=== PATIENT | female | born 1990 | race Caucasian/White ===

== ENCOUNTER 2022-05-04 03:46 | Emergency (ER) | payer MEDICAID, OTHER ==
--- NOTE | 2022-05-04 04:13 | ED GI ---
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 Having intermittent abdominal pain for the past 1 year, which is associated with alternating constipation and diarrhea, with nausea and vomiting. Patient states that any flavorful food, greasy food, spicy food, alcohol will trigger the symptoms. Patient has been eating very bland food for the past year. Patient has recently moved here from [place], and has not seen a PCP in [place] or here for her abdominal issues. Patient states she did not see a PCP because they kept canceling appointments with her while she was in [place], and she has not established PCP care here yet in [place]. Denies fever and chills, chest pain, palpitations, headache or dizziness. Allergies and Home Medications Allergies Coded Allergies: Penicillins (Verified Allergy, Unknown, 05/04/22) amoxicillin (Verified Allergy, Unknown, 05/04/22) Patient Home Medication List Home Medication List Reviewed: Yes Review of Systems Review of Systems Constitutional: no symptoms reported EENTM: No Symptoms Reported Respiratory: No Symptoms Reported Cardiovascular: No Symptoms Reported Gastrointestinal: Abdominal Pain, Nausea, Vomiting Genitourinary: No Symptoms Reported Musculoskeletal: no symptoms reported Skin: no symptoms reported Psychiatric/Neurological: No Symptoms Reported Endocrine: No Symptoms Reported Hematologic/Lymphatic: No Symptoms Reported Past Eikpyta-Rlbtsp-Nuhxuz Hx Patient Social History Use of E-Cig and/or Vaping dev: Yes E-Cig or Vaping type used: Nicotine Substance use?: No Alcohol Use?: No Pt feels they are or have been: No Physical Exam Vital Signs Vital Signs - First Documented 05/04/22 03:52 Temp 36.3 Pulse 82 Resp 18 B/P (MAP) 106/65 (79) Pulse Ox 98 O2 Delivery Room Air Capillary Refill : Less Than 3 Seconds Height/Weight/BMI Height: '" Weight: lbs. oz. kg; BMI Method: General Appearance: WD/WN, mild distress HEENT: PERRL/EOMI Neck: full range of motion Respiratory: chest non-tender, lungs clear, normal breath sounds Cardiovascular: regular rate, rhythm Gastrointestinal: normal bowel sounds, soft, no organomegaly, tenderness (generalized tenderness, epigastric tenderness) Extremities: normal range of motion Back: no CVA tenderness Neurologic/Psychiatric: alert, oriented x 3 Skin: normal color Progress/Results/Core Measures Results/Orders Lab Results Laboratory Tests Test 05/04/22 03:58 Range/Units White Blood Count 9.2 4.3-11.0 10^3/uL Red Blood Count 4.77 3.80-5.11 10^6/uL Hemoglobin 13.7 11.5-16.0 g/dL Hematocrit 41 35-52 % Mean Corpuscular Volume 86 80-99 fL Mean Corpuscular Hemoglobin 29 25-34 pg Mean Corpuscular Hemoglobin Concent 34 32-36 g/dL Red Cell Distribution Width 12.5 10.0-14.5 % Platelet Count 235 130-400 10^3/uL Mean Platelet Volume 10.2 9.0-12.2 fL Neutrophils (%) (Auto) 73 42-75 % Lymphocytes (%) (Auto) 20 12-44 % Monocytes (%) (Auto) 7 0-12 % Eosinophils (%) (Auto) 0 0-10 % Basophils (%) (Auto) 0 0-10 % Neutrophils # (Auto) 6.7 1.8-7.8 X 10^3 Lymphocytes # (Auto) 1.9 1.0-4.0 X 10^3 Monocytes # (Auto) 0.6 0.0-1.0 X 10^3 Eosinophils # (Auto) 0.0 0.0-0.3 10^3/uL Basophils # (Auto) 0.0 0.0-0.1 10^3/uL Sodium Level 140 135-145 MMOL/L Potassium Level 3.5 L 3.6-5.0 MMOL/L Chloride Level 106 98-107 MMOL/L Carbon Dioxide Level 23 21-32 MMOL/L Anion Gap 11 5-14 MMOL/L Blood Urea Nitrogen 8 7-18 MG/DL Creatinine 0.71 0.60-1.30 MG/DL Estimat Glomerular Filtration Rate 115 BUN/Creatinine Ratio 11 Glucose Level 105 70-105 MG/DL Calcium Level 9.1 8.5-10.1 MG/DL Corrected Calcium 8.8 8.5-10.1 MG/DL Magnesium Level 2.1 1.6-2.4 MG/DL Total Bilirubin 0.4 0.1-1.0 MG/DL Aspartate Amino Transf (AST/SGOT) 12 5-34 U/L Alanine Aminotransferase (ALT/SGPT) 9 0-55 U/L Alkaline Phosphatase 78 40-136 U/L Total Protein 7.1 6.4-8.2 GM/DL Albumin 4.4 3.2-4.5 GM/DL Lipase 22 8-78 U/L My Orders Orders - ENRIQUETA SHAVER MD Drug Screen Stat (Urine) (05/04/22 04:13) Ua Culture If Indicated (05/04/22 04:13) Hcg,Qualitative Urine (05/04/22 04:14) Cbc With Automated Diff (05/04/22 04:14) Comprehensive Metabolic Panel (05/04/22 04:14) Lactic Acid Analyzer (05/04/22 04:14) Lipase (05/04/22 04:14) Magnesium (05/04/22 04:14) Ct Abdomen/Pelvis W (05/04/22 04:26) Ondansetron Injection (Zofran Injectio (05/04/22 04:30) Famotidine Injection (Pepcid Injection) (05/04/22 04:27) Ed Iv/Invasive Line Start (05/04/22 04:28) Iohexol Injection (Omnipaque 350 Mg/Ml 1 (05/04/22 04:45) Di Iv Start (Assessment) .IV start (05/04/22 04:34) Received Contrast (Hold Metformin- Contr (05/04/22 04:45) Ns (Ivpb) (Sodium Chloride 0.9% Ivpb Bag (05/04/22 04:45) Ed Iv/Invasive Line Start (05/04/22 05:37) Ns Iv 1000 Ml (Sodium Chloride 0.9%) (05/04/22 05:45) Medications Given in ED Current Medications Medications Dose Ordered Sig/Onel Route Start Time Stop Time Status Last Admin Dose Admin Iohexol 75 ml ONCE ONCE IV 05/04/22 04:45 05/04/22 04:46 DC 05/04/22 04:43 75 ML Ondansetron HCl 4 mg ONCE ONCE IVP 05/04/22 04:30 05/04/22 04:31 DC 05/04/22 04:32 4 MG Sodium Chloride 100 ml ONCE ONCE IV 05/04/22 04:45 05/04/22 04:46 DC 05/04/22 04:43 100 ML Vital Signs/I&O 05/04/22 03:52 Temp 36.3 Pulse 82 Resp 18 B/P (MAP) 106/65 (79) Pulse Ox 98 O2 Delivery Room Air Blood Pressure Mean: 79 Progress Progress Note : Progress Note 1. ABDOMINAL PAIN: IRRITABLE BOWEL SYNDROME - CT ABD: No acute findings - CBC/ CMP: normal - UA/UDS: Patient did not give a urine specimen - UCG: " - Pepcid 20mg iv/Zofran 4mg iv - NS IVF bolus STAT -Prescription given for Zofran ODT to be taken as needed for nausea and vomiting, advised [id number] Pepcid daily -Advised to follow-up with PCP within the next 7 days and also make a GI appointment -Adequate fluid intake advised -The patient was seen in the ED, and treated appropriately to presentation at a specific point in time. Patient is informed that there is a possibility that disease and illness can evolve and change in acuity rapidly or slowly after patient is discharged from the ER. Precautionary advice given to the patient for immediate return to ER if symptoms worsen or do not resolve, and to seek emerg ency care sooner rather than later. Pt also advised on the importance of PCP follow up and compliance with management and follow up plan with PCP and/or specialist, as this is part of the management plan. Pt verbally expressed understanding. Diagnostic Imaging Diagonstic Imaging: CT Plain Films/CT/US/NM/MRI: abdomen Comments [facility], [place] NAME: HELENE THOMASON [facility] REC#: [id number] PT STATUS: REG ER : 1990 PHYSICIAN: ENRIQUETA SHAVER MD ADMIT DATE: 05/04/22/ER FS Signed Date of Exam:05/04/22 CT ABDOMEN/PELVIS W CT ABDOMEN/PELVIS W TECHNIQUE: Multiple contiguous axial images were obtained through the abdomen and pelvis after administration of intravenous contrast. All CT scans use one or more of the following dose optimizing techniques: automated exposure control, MA and/or KvP adjustment based on patient size and exam type or iterative reconstruction. INDICATION: Generalized abdominal pain COMPARISON: None available. FINDINGS: Lower chest: The lung bases are clear. No pericardial or pleural effusion. Peritoneum: Trace free simple fluid in the pelvis is considered physiologic in a female of this age. Liver and biliary system: The liver is normal. The gallbladder is normal. No biliary duct dilation. Spleen and Pancreas: Spleen is normal. The pancreas enhances normally without mass lesion or peripancreatic inflammatory changes. Adrenals: Normal. tract: The kidneys enhance normally without suspicious mass or obstruction. Urinary bladder is distended without wall thickening. Hysterectomy. Both ovaries are normal in appearance. GI tract: Stomach is decompressed. No bowel obstruction. No pericolonic inflammatory changes. Normal appendix. Vasculature and Lymph nodes: Normal caliber aorta. No abdominal or pelvic lymphadenopathy. Musculoskeletal: No concerning osseous lesion. IMPRESSION: 1. No acute obstructive or inflammatory process. 2. No urinary tract stones. Dictated by: Dictated on workstation # [id number] Dict: 05/04/22 0551 Trans: 05/04/22 0554 [facility] [id number] Interpreted by: ELIZABETH WESTFALL MD Electronically signed by: ELIZABETH WESTFALL MD 05/04/22 0554 Departure Impression Primary Impression: Irritable bowel syndrome Qualified Codes: K58.9 - Irritable bowel syndrome without diarrhea Disposition: 01 HOME, SELF-CARE Condition: Stable Departure-Patient Inst. Referrals: NO,LOCAL PHYSICIAN (PCP/Family) Primary Care Physician Patient Instructions: Irritable Bowel Syndrome, Probiotics, IBS Diet, Irritable Bowel Syndrome (DC) Add. Discharge Instructions: -Prescription given for Zofran ODT to be taken as needed for nausea and vomiting, advised [id number] Pepcid daily -Advised to follow-up with PCP within the next 7 days and also make a GI appointment -Adequate fluid intake advised All discharge instructions reviewed with patient and/or family. Voiced understanding. Scripts Ondansetron (Ondansetron Odt) 4 Mg Tab.rapdis 4 MG SL Q4H PRN for NAUSEA/VOMITING for 5 Days, #25 TAB Prov: ENRIQUETA SHAVER MD 05/04/22 ENRIQUETA SHAVER MD May 04, 2022 04:13
[2022-05-04] MEDS ORDERED: FAMOTIDINE 20MG/2ML IV (PEPCID) IV STA (04:27)
[2022-05-04] MEDS ORDERED: ONDANSETRON 4 MG/2 ML (SDV) Z0FRAN IVP ONE (04:30)
[2022-05-04 04:42] LABS: BASOPHILS % (AUTO) 0 % (0-10); EOSINOPHILS % (AUTO) 0 % (0-10); HEMATOCRIT 41 % (35-52); HEMOGLOBIN 13.7 g/dL (11.5-16.0); LYMPHOCYTES % (AUTO) 20 % (12-44); MEAN CORPUSCULAR HEMOGLOBIN 29 pg (25-34); MEAN CORPUSCULAR HGB CONC 34 g/dL (32-36); MEAN CORPUSCULAR VOLUME 86 fL (80-99); MEAN PLATELET VOLUME 10.2 fL (9.0-12.2); MONOCYTES % (AUTO) 7 % (0-12); NEUTROPHILS % (AUTO) 73 % (42-75); PLATELET COUNT 235 10^3/uL (130-400); WHITE BLOOD COUNT 9.2 10^3/uL (4.3-11.0)
[2022-05-04 04:43] LABS: LYMPHOCYTES # (AUTO) 1.9 X 10^3 (1.0-4.0); MONOCYTES # (AUTO) 0.6 X 10^3 (0.0-1.0); NEUTROPHILS # (AUTO) 6.7 X 10^3 (1.8-7.8)
[2022-05-04] MEDS ORDERED: NS 100 ML (IVPB) BAG IV ONE (04:45)
[2022-05-04] MEDS ORDERED: HOLD METFORMIN - RECEIVED CONTRAST 20 ML VIAL IV SCH (04:45)
[2022-05-04] MEDS ORDERED: IOHEXOL 350 MG/ML 100 ML (OMNIPAQUE 350) VIAL IV ONE (04:45)
[2022-05-04 04:57] LABS: ALBUMIN 4.4 GM/DL (3.2-4.5); BILIRUBIN,TOTAL 0.4 MG/DL (0.1-1.0); CALCIUM 9.1 MG/DL (8.5-10.1); CREATININE SERUM 0.71 MG/DL (0.60-1.30); MAGNESIUM 2.1 MG/DL (1.6-2.4); POTASSIUM 3.5 MMOL/L (3.6-5.0); TOTAL PROTEIN 7.1 GM/DL (6.4-8.2)
[2022-05-04] MEDS ORDERED: NS IV 1000 ML 1,000 ML IV SCH (05:45)
--- NOTE | 2022-05-04 05:55 | Diagnostic Imaging Report ---
CT ABDOMEN/PELVIS W TECHNIQUE: Multiple contiguous axial images were obtained through the abdomen and pelvis after administration of intravenous contrast. All CT scans use one or more of the following dose optimizing techniques: automated exposure control, MA and/or KvP adjustment based on patient size and exam type or iterative reconstruction. INDICATION: Generalized abdominal pain COMPARISON: None available. FINDINGS: Lower chest: The lung bases are clear. No pericardial or pleural effusion. Peritoneum: Trace free simple fluid in the pelvis is considered physiologic in a female of this age. Liver and biliary system: The liver is normal. The gallbladder is normal. No biliary duct dilation. Spleen and Pancreas: Spleen is normal. The pancreas enhances normally without mass lesion or peripancreatic inflammatory changes. Adrenals: Normal. tract: The kidneys enhance normally without suspicious mass or obstruction. Urinary bladder is distended without wall thickening. Hysterectomy. Both ovaries are normal in appearance. GI tract: Stomach is decompressed. No bowel obstruction. No pericolonic inflammatory changes. Normal appendix. Vasculature and Lymph nodes: Normal caliber aorta. No abdominal or pelvic lymphadenopathy. Musculoskeletal: No concerning osseous lesion. IMPRESSION: 1. No acute obstructive or inflammatory process. 2. No urinary tract stones. Dictated by: Dictated on workstation # [id number]
[2022-05-04] MEDS ORDERED: ONDA4TAB11 SL (06:15)
[2022-05-04 06:22] VITALS: BP 106/65
[2022-05-05] MEDS ORDERED: CLIN-144 PO (22:04)
== END 2022-05-04 06:28 | disposition home or self-care (01) ==
LOC: ER FS 03:51
DX: K58.9 Irritable bowel syndrome, unspecified (principal); F17.290 Nicotine dependence, other tobacco product, uncomplicated; Z28.310 Unvaccinated for COVID-19
CPT/HCPCS: 36415; 74177; 80053; 83690; 83735; 85025; Q9967

== ENCOUNTER 2022-05-05 21:47 | Emergency (ER) | payer MEDICAID ==
[~2022-05-05] VITALS: Ht 172.7 cm; Wt 85.2 kg
[~2022-05-05 21:47] MED LIST: ONDA4TAB11 SL
[2022-05-05 21:50] VITALS: BP 117/68
[2022-05-05] MEDS ORDERED: LIDOCAINE/EPI 2% 1:100,00 (XYLOCAINE) 20 ML VIAL INJ ONE (22:00)
[2022-05-05] MEDS ORDERED: CLINDAMYCIN 150 MG (CLEOCIN) CAP PO ONE (22:00)
[2022-05-05] MEDS ORDERED: IBUPROFEN 600 MG (MOTRIN) TAB PO ONE (22:00)
--- NOTE | 2022-05-05 22:01 | ED Integumentary General ---
General Chief Complaint: Skin/Wound Problems Stated Complaint: PAIN W LYMPH NODE IN ARMPIT,NAUSEA,ABD PAIN,CHILLS Source: patient, old records Exam Limitations: no limitations History of Present Illness Date Seen by Provider: May 05, 2022 Time Seen by Provider: 21:53 Initial Comments 32-year-old female with no pertinent past medical history coming in due to swollen "cyst" in her right armpit and starting to feel like she was having sweats and body aches tonight. Been getting worse since Thursday, she was seen in the ER couple days ago, mostly for abdominal pain, but related issues in her axilla today. Otherwise denying any other acute complaints. Does not have a uterus. Has not had an updated tetanus vaccine in more than 10 years she believes. Allergies and Home Medications Allergies Coded Allergies: Penicillins (Verified Allergy, Unknown, 05/04/22) amoxicillin (Verified Allergy, Unknown, 05/04/22) Patient Home Medication List Home Medication List Reviewed: Yes Clindamycin HCl (Clindamycin HCl) 300 Mg Capsule, 300 MG PO QID Prescribed by: ROBERT GOSS on 05/05/224 Ondansetron (Ondansetron Odt) 4 Mg Tab.rapdis, 4 MG SL Q4H PRN for NAUSEA/VOMITING Prescribed by: ENRIQUETA SHAVER MD on 05/04/22 0615 Review of Systems Review of Systems Constitutional: chills EENTM: no symptoms reported Respiratory: no symptoms reported Cardiovascular: no symptoms reported Gastrointestinal: no symptoms reported Genitourinary: no symptoms reported Musculoskeletal: no symptoms reported Skin: see HPI Psychiatric/Neurological: No Symptoms Reported Past Uzmeolw-Fodwwq-Dqjjip Hx Patient Social History Use of E-Cig and/or Vaping dev: Yes E-Cig or Vaping type used: Nicotine Past Medical History Surgery/Hospitalization HX: Partial hysterectomy Surgeries: Yes Physical Exam Vital Signs Vital Signs - First Documented 05/05/22 21:50 Temp 36.3 Pulse 78 Resp 18 B/P (MAP) 117/68 (84) Pulse Ox 98 O2 Delivery Room Air Capillary Refill : General Appearance: WD/WN, no apparent distress HEENT: PERRL/EOMI, normal ENT inspection, pharynx normal Neck: non-tender, full range of motion, supple, normal inspection Cardiovascular: regular rate, rhythm, no edema, no murmur Respiratory: chest non-tender, lungs clear, normal breath sounds, no respiratory distress, no accessory muscle use Gastrointestinal: normal bowel sounds, non tender, soft; No distended, No guarding, No rebound Back: normal inspection, no CVA tenderness, no vertebral tenderness Extremities: normal range of motion, non-tender, normal inspection, no pedal edema, no calf tenderness, normal capillary refill Neurologic/Psychiatric: no motor/sensory deficits, alert, normal mood/affect Skin: normal color, warm/dry, other (Fluctuant abscess to the right axilla with overlying cellulitis) Procedures/Interventions I&D : Site: right axilla Blade Size: 15 I & D Procedure: Wound Packing Packing/Drain: Idoform 1 Progress The wound was anesthetized with 4 cc of lidocaine 2% with epinephrine with good results. Single stab incision with a 15 blade followed by a moderate amount of purulent drainage. It was packed with iodoform gauze. Patient tolerated the procedure well. Progress/Results/Core Measures Results/Orders My Orders Orders - ROBERT GOSS MD Clindamycin Capsule (Cleocin Capsule) (05/05/22 22:00) Lidocaine/Epi 2% 1:100,000 (Xylocaine/Ep (05/05/22 22:00) Ibuprofen Tablet (Motrin Tablet) (05/05/22 22:00) Dipht,Pertuss(Acell),Tet Adult (Boostrix (05/05/22 22:15) Medications Given in ED Current Medications Medications Dose Ordered Sig/Onel Route Start Time Stop Time Status Last Admin Dose Admin Clindamycin HCl 300 mg ONCE ONCE PO 05/05/22 22:00 05/05/22 22:01 DC 05/05/22 22:08 300 MG Diphtheria/ Tetanus/Acell Pertussis 0.5 ml ONCE ONCE IM 05/05/22 22:15 05/05/22 22:16 DC 05/05/22 22:09 0.5 ML Ibuprofen 600 mg ONCE ONCE PO 05/05/22 22:00 05/05/22 22:01 DC 05/05/22 22:08 600 MG Lidocaine/ Epinephrine 20 ml ONCE ONCE INJ 05/05/22 22:00 05/05/22 22:01 DC 05/05/22 22:10 20 ML Vital Signs/I&O 05/05/22 21:50 Temp 36.3 Pulse 78 Resp 18 B/P (MAP) 117/68 (84) Pulse Ox 98 O2 Delivery Room Air Progress Progress Note : Progress Note 32-year-old female presenting for chills and pain in her right axilla where she believes she has a cyst. On exam she has an abscess with overlying cellulitis. This was confirmed with ultrasound by me with no vasculature near the abscess. It was numbed with local anesthesia and incised with a single stab incision with moderate amount of purulent drainage. Patient given clindamycin given her penicillin allergy. I believe she is otherwise stable for discharge with outpatient follow-up. She was sent home with strict return precautions Departure Impression Primary Impression: Cellulitis and abscess of upper extremity Disposition: HOME, SELF-CARE Condition: Stable Departure-Patient Inst. Referrals: [facility] DAVID,LOCAL PHYSICIAN (PCP) Primary Care Physician Patient Instructions: Abscess Incision and Drainage ED Add. Discharge Instructions: You did have an abscess in as well as a skin infection over the top of that. You will be on antibiotics for the next week. Call the [facility] number in this paperwork tomorrow and schedule an appointment with a PCP. When you call, be sure to tell them you want the appointment in [place]. Your antibiotics were sent to [facility]. Take ibuprofen or Tylenol as needed for pain. We recommend taking a probiotic with this antibiotic You can take the packing out tomorrow and put a bandage over it afterwards Scripts Clindamycin HCl (Clindamycin HCl) 300 Mg Capsule 300 MG PO QID for 7 Days, #28 CAP Prov: ROBERT GOSS MD 05/05/22 Work/School Note: Family Work Note, Patient Received Medical Care In the Emergency Department On: May 05, 2022 Patient Will Be Able to Return to Work/School On: May 07, 2022 Work Release Form Date Seen in the Emergency Department: May 05, 2022 Return to Work: May 07, 2022 Restrictions: No Restrictions ROBERT GOSS MD May 05, 2022 22:01
[2022-05-05] MEDS ORDERED: CLIN-144 PO (22:04)
[2022-05-05] MEDS ORDERED: TETANUS,DIPTH,PERTUSS P/F (BOOSTRIX) 0.5 ML VIAL IM ONE (22:15)
== END 2022-05-05 22:27 | disposition home or self-care (01) ==
LOC: EDUNIT# 21:47 → ER FS 21:50
DX: L03.111 Cellulitis of right axilla (principal); L02.411 Cutaneous abscess of right axilla; F17.290 Nicotine dependence, other tobacco product, uncomplicated; Z88.0 Allergy status to penicillin; Z28.310 Unvaccinated for COVID-19
CPT/HCPCS: 10061; 90715

== ENCOUNTER 2022-05-15 01:47 | Emergency (ER) | payer MEDICAID ==
[~2022-05-15] VITALS: Ht 172.7 cm; Wt 81.0 kg
[~2022-05-15 01:47] MED LIST changes: +CLIN-144 PO
[2022-05-15 01:58] VITALS: BP 123/86
[2022-05-15] MEDS ORDERED: PROMETHAZINE INJ 25 MG/ML (PHENERGAN) AMP IVP ONE (02:15)
[2022-05-15] MEDS ORDERED: LACTATED RINGERS 1,000 ML IV ONE (02:15)
[2022-05-15] MEDS ORDERED: PANTOPRAZOLE 40 MG (PROTONIX) VIAL IV ONE (02:15)
[2022-05-15 02:18] LABS: BASOPHILS % (AUTO) 0 % (0-10); EOSINOPHILS # (AUTO) 0.1 10^3/uL (0.0-0.3); EOSINOPHILS % (AUTO) 1 % (0-10); HEMATOCRIT 41 % (35-52); HEMOGLOBIN 14.1 g/dL (11.5-16.0); LYMPHOCYTES # (AUTO) 3.1 10^3/uL (1.0-4.0); LYMPHOCYTES % (AUTO) 27 % (12-44); MEAN CORPUSCULAR HEMOGLOBIN 29 pg (25-34); MEAN CORPUSCULAR HGB CONC 34 g/dL (32-36); MEAN CORPUSCULAR VOLUME 84 fL (80-99); MONOCYTES # (AUTO) 0.8 10^3/uL (0.0-1.0); MONOCYTES % (AUTO) 7 % (0-12); NEUTROPHILS # (AUTO) 7.3 10^3/uL (1.8-7.8); NEUTROPHILS % (AUTO) 64 % (42-75); PLATELET COUNT 273 10^3/uL (130-400); WHITE BLOOD COUNT 11.3 10^3/uL (4.3-11.0)
[2022-05-15] MEDS ORDERED: SCOPOLAMINE 1.5 MG (TRANSDERM-SCOP) PATCH TD ONE (02:30)
[2022-05-15 02:45] LABS: BUN/CREATININE RATIO 13; CARBON DIOXIDE 22 MMOL/L (21-32); CHLORIDE 105 MMOL/L (98-107); CREATININE SERUM 0.86 MG/DL (0.60-1.30); GFR ESTIMATED 91; POTASSIUM 3.8 MMOL/L (3.6-5.0); SODIUM 140 MMOL/L (135-145)
[2022-05-15 02:46] LABS: ALANINE AMINOTRANSFERASE 10 U/L (0-55); ALKALINE PHOSPHATASE 83 U/L (40-136); BILIRUBIN,TOTAL 0.5 MG/DL (0.1-1.0); CALCIUM 9.4 MG/DL (8.5-10.1); GLUCOSE 121 MG/DL (70-105); MAGNESIUM 2.1 MG/DL (1.6-2.4)
[2022-05-15 02:47] LABS: ALBUMIN 4.7 GM/DL (3.2-4.5); TOTAL PROTEIN 7.7 GM/DL (6.4-8.2)
[2022-05-15] MEDS ORDERED: KETOROLAC 30 MG/ML VIAL IVP ONE (03:30)
[2022-05-15] MEDS ORDERED: PROM25TA14 PO (03:30)
--- NOTE | 2022-05-15 03:30 | ED GI ---
General Chief Complaint: Abdominal/GI Problems Stated Complaint: ABD PAIN/VOMIT Nursing Triage Note: Pt presents with c/o abdominal pain that started at approx [id number] tonight. She states it was after she ate. She laid down and woke up at 2200 with vomiting. Source of Information: Patient Exam Limitations: No Limitations History of Present Illness Date Seen by Provider: May 15, 2022 Time Seen by Provider: 02:00 Initial Comments This 32-year-old young lady presents to the emergency room by her own private vehicle with complaints of upper abdominal pain and vomiting since around 1900. Started with a sensation of fullness in the upper abdomen around 1900. She then began vomiting around 2200. She denies any fever or diarrhea. She took Zofran x3 but continued to vomit. She appears tearful and somewhat in distress on assessment. Allergies and Home Medications Allergies Coded Allergies: Penicillins (Verified Allergy, Unknown, 05/04/22) amoxicillin (Verified Allergy, Unknown, 05/04/22) Patient Home Medication List Home Medication List Reviewed: Yes Clindamycin HCl (Clindamycin HCl) 300 Mg Capsule, 300 MG PO QID Prescribed by: ROBERT GOSS on 05/05/224 Ondansetron (Ondansetron Odt) 4 Mg Tab.rapdis, 4 MG SL Q4H PRN for NAUSEA/VOMITING Prescribed by: ENRIQUETA SHAVER MD on 05/04/22 0615 Promethazine HCl (Promethazine Tablet) 25 Mg Tablet, 25 MG PO Q6H PRN for NAUSEA/VOMITING-2ND LINE Prescribed by: RANI WEST on 05/15/22 0330 Review of Systems Review of Systems Constitutional: no symptoms reported EENTM: No Symptoms Reported Respiratory: No Symptoms Reported Cardiovascular: No Symptoms Reported Gastrointestinal: See HPI Genitourinary: No Symptoms Reported Musculoskeletal: no symptoms reported Skin: no symptoms reported Psychiatric/Neurological: No Symptoms Reported Endocrine: No Symptoms Reported Hematologic/Lymphatic: No Symptoms Reported Past Zijaevf-Obspzv-Sxwumg Hx Patient Social History Tobacco Use?: No Use of E-Cig and/or Vaping dev: Yes E-Cig or Vaping type used: Nicotine Substance use?: No Alcohol Use?: No Pt feels they are or have been: No Immunizations Up To Date Influenza Vaccine Up-to-Date: No; Not Current Past Medical History Surgery/Hospitalization HX: Partial hysterectomy Surgeries: Yes Hysterectomy (Sparing the ovaries) Respiratory: No Cardiac: No Neurological: No : No Genitourinary: No Gastrointestinal: No Musculoskeletal: No Endocrine: No HEENT: No Cancer: No Did You Recieve Any Treatments: No Psychosocial: No Physical Exam Vital Signs Vital Signs - First Documented 05/15/22 01:58 Temp 36.8 Pulse 85 Resp 18 B/P (MAP) 123/86 (98) Capillary Refill : Less Than 3 Seconds Height/Weight/BMI Height: '" Weight: lbs. oz. kg; 27.00 BMI Method: General Appearance: WD/WN, mild distress HEENT: normal ENT inspection Neck: normal inspection Respiratory: lungs clear, normal breath sounds Cardiovascular: regular rate, rhythm, no edema, no murmur Gastrointestinal: normal bowel sounds, soft; No distended; tenderness (Mild in epigastrium) Extremities: normal inspection Neurologic/Psychiatric: no motor/sensory deficits, alert, normal mood/affect Skin: normal color, warm/dry Progress/Results/Core Measures Results/Orders Lab Results Laboratory Tests Test 05/15/22 02:00 Range/Units White Blood Count 11.3 H 4.3-11.0 10^3/uL Red Blood Count 4.92 3.80-5.11 10^6/uL Hemoglobin 14.1 11.5-16.0 g/dL Hematocrit 41 35-52 % Mean Corpuscular Volume 84 80-99 fL Mean Corpuscular Hemoglobin 29 25-34 pg Mean Corpuscular Hemoglobin Concent 34 32-36 g/dL Red Cell Distribution Width 12.0 10.0-14.5 % Platelet Count 273 130-400 10^3/uL Mean Platelet Volume 10.0 9.0-12.2 fL Immature Granulocyte % (Auto) 0 % Neutrophils (%) (Auto) 64 42-75 % Lymphocytes (%) (Auto) 27 12-44 % Monocytes (%) (Auto) 7 0-12 % Eosinophils (%) (Auto) 1 0-10 % Basophils (%) (Auto) 0 0-10 % Neutrophils # (Auto) 7.3 1.8-7.8 10^3/uL Lymphocytes # (Auto) 3.1 1.0-4.0 10^3/uL Monocytes # (Auto) 0.8 0.0-1.0 10^3/uL Eosinophils # (Auto) 0.1 0.0-0.3 10^3/uL Basophils # (Auto) 0.0 0.0-0.1 10^3/uL Immature Granulocyte # (Auto) 0.0 0.0-0.1 10^3/uL Sodium Level 140 135-145 MMOL/L Potassium Level 3.8 3.6-5.0 MMOL/L Chloride Level 105 98-107 MMOL/L Carbon Dioxide Level 22 21-32 MMOL/L Anion Gap 13 5-14 MMOL/L Blood Urea Nitrogen 11 7-18 MG/DL Creatinine 0.86 0.60-1.30 MG/DL Estimat Glomerular Filtration Rate 91 BUN/Creatinine Ratio 13 Glucose Level 121 H 70-105 MG/DL Calcium Level 9.4 8.5-10.1 MG/DL Corrected Calcium 8.5-10.1 MG/DL Magnesium Level 2.1 1.6-2.4 MG/DL Total Bilirubin 0.5 0.1-1.0 MG/DL Aspartate Amino Transf (AST/SGOT) 14 5-34 U/L Alanine Aminotransferase (ALT/SGPT) 10 0-55 U/L Alkaline Phosphatase 83 40-136 U/L C-Reactive Protein < 0.30 <0.50 MG/DL Total Protein 7.7 6.4-8.2 GM/DL Albumin 4.7 H 3.2-4.5 GM/DL My Orders Orders - RANI EDOUARD MD Promethazine Injection (Phenergan Injec (05/15/22 02:15) Ed Iv/Invasive Line Start (05/15/22 02:06) Lactated Ringers (Lr 1000 Ml Iv Solution (05/15/22 02:15) Cbc With Automated Diff (05/15/22 02:06) Comprehensive Metabolic Panel (05/15/22 02:06) Magnesium (05/15/22 02:06) Pantoprazole Injection (Protonix Injecti (05/15/22 02:15) Crp Fs (05/15/22 02:00) Scopolamine Patch (Transderm-Scop Patch) (05/15/22 02:30) Ketorolac Injection (Toradol Injection) (05/15/22 03:30) Medications Given in ED Vital Signs/I&O 05/15/22 01:58 Temp 36.8 Pulse 85 Resp 18 B/P (MAP) 123/86 (98) Blood Pressure Mean: 98 Progress Progress Note : Progress Note Patient exhibited some mild generalized upper abdominal tenderness on exam. She was treated with IV fluids. Phenergan had been ordered but was declined as patient did not want to be drowsy and unable to drive home. As an alternative she was given a scopolamine patch. Zofran had already been taken at home. She received Protonix for the epigastric discomfort. She did have improvement in symptoms. She was additionally given Toradol before discharge home. Labs were reviewed including CBC, CMP, and CRP. These were unremarkable by my interpretation. See discharge instructions for further discussion. Departure Impression Primary Impression: Nausea and vomiting Qualified Codes: R11.2 - Nausea with vomiting, unspecified Additional Impression: Upper abdominal pain Disposition: HOME, SELF-CARE Condition: Improved Departure-Patient Inst. Decision time for Depature: 03:27 Referrals: NO,LOCAL PHYSICIAN (PCP/Family) Primary Care Physician Patient Instructions: Abdominal Pain, Adult ED, Nausea and Vomiting, Adult ED Add. Discharge Instructions: Start with a noncarbonated clear liquid diet and adhere to clear liquids only throughout the morning. If you are feeling much better this afternoon, you may gradually advance your diet with small quantities of bland food as tolerated. Avoid fatty/greasy foods, dairy products, and spicy foods for the next few days. Use the Zofran (ondansetron) and the frequency previously prescribed. Place under the tongue to dissolve instead of on top of the tongue. Use Phenergan (promethazine) as a backup medication for nausea and vomiting if Zofran does not provide enough relief. You may use Tylenol (acetaminophen) up to 1000 mg every 6 hours as needed for pain. Take an antiacid medication such as omeprazole 20 mg or Pepcid (famotidine) 20 mg twice daily until your symptoms have completely resolved. Return to the emergency room if you have worsening symptoms despite following these instructions. All discharge instructions reviewed with patient and/or family. Voiced understanding. Scripts Promethazine HCl (Promethazine Tablet) 25 Mg Tablet 25 MG PO Q6H PRN for NAUSEA/VOMITING-2ND LINE, #10 TAB Prov: RANI EDOUARD MD 05/15/22 RANI EDOUARD MD May 15, 2022 03:30
== END 2022-05-15 04:04 | disposition home or self-care (01) ==
LOC: EDUNIT# 01:47 → ER FS 01:50
DX: R10.13 Epigastric pain (principal); R11.2 Nausea with vomiting, unspecified; F17.290 Nicotine dependence, other tobacco product, uncomplicated; Z90.710 Acquired absence of both cervix and uterus; Z28.310 Unvaccinated for COVID-19
CPT/HCPCS: 36415; 80053; 83735; 85025; 86141